=== PATIENT | male | born 1950 | race Caucasian/White ===

== ENCOUNTER → 2016-10-16 | Outpatient (CLI) | payer MEDICARE, OTHER ==
[~2016-10-16] MED LIST: ACTOS45 MG PO; ASPIRIN 325MG325 MG PO; ASPIRIN 81MG TA81 MG PO; BACLOFEN20 MG PO; BACTROBAN 2% C1 INCH EX; CARAFATE1 GM PO; CARAFATE1 GM/10 ML PO; CHEWABLE ASPIRI81 MG PO; DIOVAN HCT 25 M1 TA1 PO; ESCITALOPRAM 2020 MG PO; FENOFIBRATE48 MG PO; FLEXERIL10 M1 PO; GABAPENTIN TAB600 MG PO; GABAPENTIN300 M1 PO; GABAPENTIN300 MG PO; GEMFIBROZIL600 MG PO; HYDROCHLOROTH12.5 M1 PO; IBU800 M1 PO; INSULIN GL100 UNITS1 SC; Isosorbide Mono30 MG PO; JANUVIA50 MG PO; LANTUS INS100 UNITS/ SC; LASIX 40MG. TAB40 MG PO; LIPITOR40 MG PO; LORTAB 5/500 501 TAB PO; MECLIZINE25 MG PO; MEDROL 4MG. DOSE4 MG PO; METFORMIN HCL1000 MG PO; METFORMIN1000 MG PO; METOPROLOL SUC100 M1 PO; METOPROLOL TART50 MG PO; METOPROLOL100 MG PO; METOPROLOL50 MG PO; MICARDIS40 MG PO; MULTIVITAMIN1 TA1 PO; NOVOLOG MI100 UNITS/ SC; OMEGA-3 FISH1000 MG PO; ONGLYZA5 MG PO; PACERONE200 MG PO; PANTOPRAZOLE SO40 MG PO; PLAVIX75 MG PO; PRAVASTATIN40 MG; PRILOSEC OTC20 MG PO; RANEXA1000 MG PO; ROPINIROLE 0.0.25 MG PO; SENTRY SENIOR1 EACH PO; TOUJEO300 U/ML SC; TRAMADOL 50MG T1 PAK PO; TRAMADOL 50MG T50 MG PO; TRAZODONE 50MG50 MG PO; VALIUM5 MG PO; VALSARTAN AND H1 TA3 PO; VIIBRYD40 MG PO; VITAMIN D1000 IU PO; ZOFRAN 8MG TABLE8 MG PO; Zofran4 MG PO
--- NOTE | 2016-10-16 08:31 | CARDIOVASCULAR REPORT ---
"Cerebrovascular Exam Indications: 435.9 Unspecified transient cerebral ischemia. IMPRESSIONS 1. The bilateral vertebral arteries are patent with normal antegrade flow. 2. Study suggests less than 20% stenosis involving the right internal carotid artery and the left internal carotid artery. No change from the study of 08-Jul-2012. 3. Tortuous carotid arteries seen bilaterally. Unable to visualize distal left internal carotid artery secondary to patient anatomy and tortuous vessels. History: Coronary artery disease. Risk factors: Hypertension. Hyperlipidemia. Carotid duplex study. Complete study and Doppler flow study including spectral analysis, color and black scale imaging. Height: Height: 172.7cm. Height: 68in. Weight: Weight: 117.9kg. Weight: 259.5lb. Body mass index: BMI: 39.5kg/m^2. Body surface area: BSA: 2.43m^2. Location: Vascular laboratory. Patient status: Outpatient. Tables: Arterial flow: + +--------+--------+ |Location |V sys |V ed | + +--------+--------+ |Right CCA - proximal|84.1cm/s|19.6cm/s| + +--------+--------+ |Right CCA - distal |92.7cm/s|19.6cm/s| + +--------+--------+ |Right ECA |122cm/s |--------| + +--------+--------+ |Right ICA - proximal|74.6cm/s|19.6cm/s| + +--------+--------+ |Right ICA - mid |61.3cm/s|18.9cm/s| + +--------+--------+ |Right ICA - distal |67.6cm/s|25.1cm/s| + +--------+--------+ |Right vertebral |33.8cm/s|--------| + +--------+--------+ |Left CCA - proximal |88.8cm/s|19.6cm/s| + +--------+--------+ |Left CCA - distal |115cm/s |19.6cm/s| + +--------+--------+ |Left ECA |110cm/s |--------| + +--------+--------+ |Left ICA - proximal |115cm/s |20.4cm/s| + +--------+--------+ |Left ICA - mid |115cm/s |24.4cm/s| + +--------+--------+ |Left vertebral |33.8cm/s|--------| + +--------+--------+ Velocity ratios: + + + + + + | |Right, V sys|Right, V ed|Left, V sys|Left, V ed| + + + + + + |Max ICA/dist CCA|0.8 |1.28 |1 |1.24 | + + + + + + (Report amended ) Electronically signed by: Ortega Aguilera [id number]"
== END ==
LOC: RT 07:42
DX: G45.8 Other transient cerebral ischemic attacks and related syndromes (principal)

== ENCOUNTER → 2017-07-02 | Outpatient (CLI) | payer MEDICARE, OTHER ==
--- NOTE | 2017-07-02 16:07 | RADIOLOGY REPORT PS360 ---
CT HEAD W/O CONTRAST HISTORY: FACIAL NUMBNESS,HEADACHE ORDERING PHYSICIAN: Jaior Guerra MD PATIENT AGE: 66 years COMPARISON: 01/16/2012 TECHNIQUE: Axial images obtained without contrast. Brain and bone windows reviewed. FINDINGS: No midline shift, mass effect, intracranial hemorrhage, hydrocephalus, or extra-axial fluid collection is evident. There is mild prominence of the cisterna magna is a normal variant unchanged. There is an old lacunar infarction in the left subinsular region. The calvarium has an unremarkable appearance. No mastoid effusion. The visualized paranasal sinuses are unremarkable. IMPRESSION: 1. No acute intracranial finding. 2. 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
== END ==
LOC: RAD 15:17
DX: R51 Headache (principal); R20.2 Paresthesia of skin

== ENCOUNTER → 2017-07-21 | Outpatient (CLI) | payer MEDICARE, OTHER | LOC: LAB 14:44 | DX: I51.3 Intracardiac thrombosis, not elsewhere classified (principal); Z79.01 Long term (current) use of anticoagulants; Z51.81 Encounter for therapeutic drug level monitoring ==

== ENCOUNTER → 2017-07-23 | Outpatient (CLI) | payer MEDICARE, OTHER | LOC: LAB 14:01 | DX: I51.3 Intracardiac thrombosis, not elsewhere classified (principal); Z79.01 Long term (current) use of anticoagulants ==

== ENCOUNTER → 2017-07-30 | Outpatient (CLI) | payer MEDICARE, OTHER | LOC: LAB 16:38 | DX: I51.3 Intracardiac thrombosis, not elsewhere classified (principal); Z79.01 Long term (current) use of anticoagulants ==

== ENCOUNTER → 2017-08-02 | Outpatient (CLI) | payer MEDICARE, OTHER | LOC: LAB 15:39 | DX: I51.3 Intracardiac thrombosis, not elsewhere classified (principal); Z79.01 Long term (current) use of anticoagulants ==

== ENCOUNTER → 2017-08-06 | Outpatient (CLI) | payer MEDICARE, OTHER | LOC: LAB 14:42 | DX: I51.3 Intracardiac thrombosis, not elsewhere classified (principal); Z79.01 Long term (current) use of anticoagulants ==

== ENCOUNTER → 2017-08-20 | Outpatient (CLI) | payer MEDICARE, OTHER | LOC: LAB 15:19 | DX: I51.3 Intracardiac thrombosis, not elsewhere classified (principal); Z79.01 Long term (current) use of anticoagulants; Z51.81 Encounter for therapeutic drug level monitoring ==